=== PATIENT | male | born 1995 ===

== ENCOUNTER 2021-07-15 11:00 | Outpatient (RCR) | payer MEDICAID, SELFPAY ==
--- NOTE | 2021-06-16 12:05 | MHC.PT.EP ---
[facility] [place] Office [place] Office [place] Office [address] Anita Mclean [address] [phone] F: [phone] F: [phone] F: [phone] F: [phone] Physical Therapy Plan of Care Date of Evaluation: Date of Surgery: Diagnosis: low back pain with radiculopathy Assessment: The patient arrived with decreased and painful trunk and hip ROM. He has reduced strength in his hips and in the L4-5 myotome. He is showing preliminary signs of a posterolateral derangement noted by increased peripheral pain with flexion and twisting. He did best with the Amaya progression with a left relevant lateral component. He demonstrated poor sitting and sleeping posture. He will need education on sitting, sleeping posture as well as lifting mechanics for his child and boxes. He is a good candidate for skilled PT. Frequency and Duration: The patient will be seen Short Term Goals: 2 weeks 1.Pt to able to demonstrate proper sitting posture with the use of a lumbar roll to decrease aggravating factors. 2.Pt to be able to demonstrate proper posture for common leisure activities such as phone/tablet use. 3.For the patient to demonstrate proper upright sitting posture with use of the lumbar roll to improve compliance and carryover. Assisted Goals: 4 weeks - 1.The patient to demonstrate proper lifting mechanics for household chore activities to show improved functional mobility. 2.The patient to report no leg or hip pain in order to show centralization of pain and reduction of lumbar derangement 3. Pt to be able to demonstrate self management of lumbar pain by demonstration of HEP. Treatment Plan: Modalities to reduce pain, spasms and effusion. Manual therapy to restore motion and function. Therapeutic exercise to improve strength and flexibility. Neuromuscular re-education for posture and balance. Therapeutic activities to return to functional activities of daily living. Electronically signed by: Sabrina Fragoso PT DPT Please sign and return to therapist. Thank you for your referral.
== END 2021-10-25 09:34 | disposition home or self-care (01) ==
LOC: HO.PT 11:00
PROVIDERS: PCP Nurse Practitioner; Visit Provider Nurse Practitioner
DX: M54.42 Lumbago with sciatica, left side (principal)
CPT/HCPCS: 97110; 97112; 97140; 97161

== ENCOUNTER 2023-11-21 10:31 | Emergency (ER) | payer MEDICAID, SELFPAY ==
--- NOTE | ~2023-11-21 | XR_ITS ---
EXAMINATION: XR LUMBOSACRAL SPINE CLINICAL INFORMATION: Atraumatic lumbar pain COMPARISON: None available. TECHNIQUE: Three views of the lumbosacral spine. FINDINGS: No fracture or destructive lesion or alignment abnormality. Vertebral body heights and disc space heights are preserved. Left unilateral sacralization L5-S1 noted. XR/XR lumbar spine 2-3V IMPRESSION: Unremarkable examination.
[2023-11-21 10:59] VITALS: BP 155/95; PULSE 72; RESP 20; TEMP 37; O2SAT 98; BMI 36.5
--- NOTE | 2023-11-21 14:30 | ED.BACK ---
HPI - Back Pain/Injury General Chief Complaint: Back Pain/Injury Stated Complaint: Sciatic Pain Time Seen by Provider: 11/21/23 14:29 Source: patient Mode of arrival: ambulatory Limitations: no limitations History of Present Illness HPI Narrative: 28 year old male with no significant pmhx presents to the ED today for evaluation of atraumatic left lower back pain x 3weeks. Pain has been intermittent and exacerbated with bending forward and moving the left leg. Has not been taking any [id number] medications for this at home. Denies recent injury or trauma to the back. Admits to having this pain a few years back however resolved on its own. Was not evaluated by medical personnel. Denies IV drug use. Denies fever, chills, neck pain, bowel or bladder incontinence or retention, numbness/tingling/weakness in the lower extremities, dysuria, hematuria, saddle anesthesia. Related Data Previous Rx's Medication Instructions Recorded cyclobenzaprine 5 mg tablet 5 mg PO BEDTIME PRN muscle spasm 11/21/23 #7 tabs lidocaine 5 % topical patch 1 patch topical DAILY #15 ea 11/21/23 (Lidoderm) Allergies Allergy/AdvReac Type Severity Reaction Status Date / Time No Known Allergies Allergy Verified 11/21/23 11:02 Review of Systems Review of Systems: Constitutional: No fever, chills, fatigue, night sweats, weight changes ENT/Mouth: No ear pain, hearing loss, nasal congestion, sinus pain, rhinorrhea, sore throat Eyes: No eye pain, swelling, redness, vision changes, discharge Cardio: No chest pain, palpitations, [place], orthopnea, peripheral edema Pulm: No SOB, cough, sputum, wheezing, dyspnea, hemoptysis GI: No nausea, vomiting, hematemesis, abdominal pain, diarrhea, constipation, hematochezia, melena : No irregular bleeding, dysuria, frequency, urgency, hesitancy, hematuria, flank pain, urinary flow changes, urinary incontinence or retention MSK: +back pain, No neck pain, joint pain, myalgias Skin: No lesions, rashes Neuro: No weakness, numbness, paresthesias, LOC, dizziness, headache All other systems reviewed and are negative. [facility] Past Medical History Attestation statement: The following information was validated with the patient. Source: old records reviewed and nursing notes reviewed Social History Social History Advance Directives: No Physical Exam Vital Signs: Vital Signs: Last Vital Signs Temp 98.3 F 11/21/23 15:21 Pulse 78 11/21/23 15:21 Resp 20 11/21/23 15:21 BP 148/86 H 11/21/23 15:21 Pulse Ox 98 11/21/23 15:21 O2 Del Method Room Air 11/21/23 15:21 BMI result Body Mass Index 36.5 Patient hypertensive to 148/86, otherwise WNL. Const: General: cooperative, healthy appearing, comfortable, no acute distress, alert, awake and Physically active Orientation/consciousness: patient oriented x3 HEENT: Head: Yes normal to inspection, Yes normocephalic and Yes atraumatic Eyes: General: appearance normal, both eyes and all related structures Conjunctivae: conjunctivae normal Sclerae: sclerae normal Pupils: Equal, round and reactive pupils present EOM: EOMs intact bilaterally Neck: Other: + no cervical midline spinous tenderness or step-off deformity. Neck: Yes normal visual inspection, Yes full ROM and Yes no meningeal signs Resp: Effort & Inspection: normal respiratory effort and able to speak in complete sentences Auscultation: clear to auscultation bilaterally Cardio: Rate: regular rate Rhythm: regular rhythm : General: Yes no CVA tenderness Back/Spine/Pelvis: Other: + No midline spinous tenderness step-off deformity. There is left lumbar paraspinal muscle tenderness to palpation. Negative straight leg raise bilaterally. Strength 5/5 throughout. 2+ patellar DTRs bilaterally. Sensation intact throughout. 2+ PT/DP pulses bilaterally. Ambulating with steady gait. Back: no CVA tenderness Skin: General skin exam: no rashes or lesions noted Neuro: Other: Strength 5/5 intact throughout.?No saddle anesthesia.?Sensation intact to light touch. Neurovascular intact distally.? General: patient oriented x3, gait normal and no meningeal signs Cranial nerves: Yes Equal, round and reactive pupils present Gait exam (Neuro): Normal gait present Extrem: General: Yes normal to inspection Course Course Course Narrative: 1635-- x-rays lumbar spine does not exhibit any acute fracture or subluxation. Patient presentation is consistent with sciatica. On re-evaluation, patient reports pain improvement with Flexeril, Toradol, and lidocaine patch. He is ambulating with steady gait throughout ED. discussed imaging results with patient. All questions answered at this time. Patient has remained stable throughout ED visit today. Discussed worrisome signs and symptoms of when to return to the ED. Patient is agreeable with disposition and stable for discharge. Medications Administered Discontinued Medications Generic Name Dose Route Start Last Admin Trade Name Hanq PRN Reason Stop Dose Admin Cyclobenzaprine HCl 5 mg 11/21/23 14:35 11/21/23 15:16 Cyclobenzaprine Hcl 5 Mg Tablet PO 11/21/23 14:36 5 mg ONCE ONE Administration Ketorolac Tromethamine 30 mg 11/21/23 14:35 11/21/23 15:17 Ketorolac Tromethamine 30 Mg/Ml Vial IM 11/21/23 14:36 30 mg ONCE ONE Administration Lidocaine 1 patch 11/21/23 14:35 11/21/23 15:16 Lidocaine 4 % Patch Adh..Patch TRANSDERMA 11/21/23 14:36 1 patch ONCE ONE Administration Protocol Medical Decision Making Medical Decision Making MDM Narrative: 28 year old male with no significant pmhx presents to the ED today for evaluation of atraumatic left lower back pain x 3weeks. Patient noted to be hypertensive, vitals otherwise WNL. Afebrile. Patient is nontoxic-appearing and in no acute distress. No midline spinous tenderness step-off deformity. There is left lumbar paraspinal muscle tenderness to palpation. Negative straight leg raise bilaterally. Strength 5/5 throughout. 2+ patellar DTRs bilaterally. Sensation intact throughout. 2+ PT/DP pulses bilaterally. Ambulating with steady gait. Concern for MSK sprain/strain, fracture, subluxation, disc herniation, sciatica. Unlikely cord compression, cauda equina, Guillain-Windsor, epidural abscess. Plan for imaging and pain control. Differential Diagnosis Differential Diagnoses: The differential diagnosis associated with the presentation includes as above Admission/Observation Not indicated. Independent Interpretation I performed an independent interpretation of an: Plain X-Ray Interpretation: I have personally reviewed lumbar spine x-ray and agree with radiologist's interpretation. Radiology Impression Discussion of test interpretation with radiology: I have reviewed the radiologist's reading. Radiologist Impression: XR lumbar spine 2-3V IMPRESSION: Unremarkable examination. Prescription Management I considered prescription management with: Other (Flexeril, lidocaine patches) Social Determinants Patient?s care significantly limited by Social Determinants of Health including: Other Social Determinant of Health Critical Care Time Critical Care Time Critical Care Time: No Discharge Plan Discharge Clinical Impression: Sciatica Patient Disposition: Home, Self-Care Instructions: Sciatica (ED), Lower Back Exercises (ED) Additional Instructions: Your imaging studies today did not show acute fracture. Your pain is likely due to sciatica. Avoid bending, lifting, or twisting. Use ice several times per day for 20 minutes at a time for the next 48 hours and then change to heat. Flexeril is a muscle relaxer. Take this at night as it makes you drowsy. Do not drive, drink alcohol, or operate machinery while taking it. Lidoderm patches are numbing patches. Apply to painful areas. You may also take Tylenol and ibuprofen at home for pain. Follow up with your primary care provider as needed If your pain worsens, if you develop new numbness, tingling, weakness, loss of bowel or bladder function call 911 or return to the ER immediately for evaluation. Prescriptions: New lidocaine [Lidoderm] 5 % adhesive patch,medicated 1 patch topical DAILY Qty: 15 0RF Rx Instructions: leave on most painful area for up to 12 hrs cyclobenzaprine 5 mg tablet 5 mg PO BEDTIME PRN (Reason: muscle spasm) Qty: 7 0RF
[2023-11-21] MEDS: Cyclobenzaprine HCl 5 MG TABLET PO (15:16)
[2023-11-21] MEDS: Lidocaine 4 % Patch ADH..PATCH 1 PATCH TRANSDERMA (15:16)
[2023-11-21] MEDS: Ketorolac Tromethamine 30 MG/ML VIAL IM (15:17)
[2023-11-21 15:21] VITALS: BP 148/86; PULSE 78; RESP 20; TEMP 36.8; O2SAT 98
== END 2023-11-21 17:07 | disposition home or self-care (01) ==
PROVIDERS: Emergency Provider Emergency Medicine
DX: M54.30 Sciatica, unspecified side (principal); M54.50 Low back pain, unspecified; I10 Essential (primary) hypertension
CPT/HCPCS: 72100; 96372; 99283; 99284; J1885